=== PATIENT | male | born 1970 | race Caucasian/White ===

== ENCOUNTER 2019-11-09 15:54 | Emergency (ER) | payer BC, OTHER ==
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
[2019-11-09 16:03] VITALS: BP 132/86; PULSE 73; TEMP 97.8; BMI 30.3
[2019-11-09] MEDS ORDERED: DIPHTH,PERTUSS(ACELL),TET 0.5 ML DISP.SYRIN IM ONE ×2 (16:11→16:13)
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
[2019-11-09] MEDS ORDERED: AMOX TR/POT CLAV 875MG/125MG TABLETS (FP) PO ONE (17:35)
[2019-11-09] MEDS ORDERED: AMOX TR/POT CLAV 875MG/125MG TABLETS (FP) ONE (17:37)
== END 2019-11-09 18:05 | disposition home or self-care (01) ==
LOC: FER 15:54
PROC: 3E0234Z Introduction of Serum, Toxoid and Vaccine into Muscle, Percutaneous Approach (ICD-10-PCS; principal; 2019-11-09)
DX: M25.512 Pain in left shoulder (principal); S41.111A Laceration without foreign body of right upper arm, initial encounter
CPT/HCPCS: 73030-TC-LT-FY; 90715; 99284-25